=== PATIENT | female | born 1980 ===

== ENCOUNTER 2020-07-27 07:57 | Observation (INO) ==
[2020-07-27] MEDS ORDERED: SODIUM CHLORIDE 0.9% 1,000 ML IV STA (08:34)
[2020-07-27 08:55] LABS: Basophils % 0.1 % (0.0-0.8); Eosinophils % 0.3 % (0.00-10.9); Hematocrit 45.1 VOL% (35.7-47.0); Hemoglobin 14.9 GM/DL (12.0-16.0); Immature Granulocytes % 0.3 %; Immature Granulocytes Absolute 0.02 #; Lymphocytes # 1.1 10*3/uL (1.4-4.0); Lymphocytes % 14.1 % (21.3-54.2); Mean Platelet Volume 10.4 FL (9.6-12.0); Monocytes % 5.4 % (1.7-12.7); Neutrophils % 79.8 % (38.7-73.9); Platelet Count 213 T/CUMM (130-400); Red Blood Count 4.51 MC/CUMM (3.8-5.5); Red Cell Distribution Width 13.7 % (9.3-17.3); White Blood Count 7.5 T/CUMM (4-12)
[2020-07-27 09:22] LABS: Acetaminophen 4.6 UG/ML (10-30); Salicylate < 2.8 MG/DL (2.8-20)
[2020-07-27 09:55] LABS: Alanine Aminotransferase 46 U/L (13-56); Albumin 4.9 G/DL (3.4-5.0); Aspartate Amino Transferase 61 U/L (0-37); Bilirubin,Total 0.51 MG/DL (0.2-1.0); Blood Urea Nitrogen 13 MG/DL (7-18); Estimated Glom Filtration Rate 49 ML/MIN; Glucose 93 MG/DL (74-106); Total Protein 8.7 G/DL (6.4-8.3)
[2020-07-27 10:16] LABS: Alkaline Phosphatase 61 U/L (45-117); Osmolality,Calculated 276.5 MOS/KG (273-304)
[2020-07-27 10:33] LABS: Bacteria,Urine Occasional /HPF (Few); Bilirubin,Urine Negative (Negative); Blood, Urine Negative (Negative); Glucose,Urine (UA) Negative (Negative); Hyaline Casts,Urine 1 /LPF (0-3); Ketones,Urine 20 mg/dL (Negative); Mucus,Urine Occasional /LPF (Occasional); Nitrite,Urine Negative (Negative); Protein,Urine 100 MG/DL; RBC,Urine 2 /HPF (0-4); Squamous Epithelial Cell,Urine Moderate /HPF (0-10); Urine Appearance CLOUDY (Clear); Urine Color Yellow (Yellow); Urine Specific Gravity 1.028 (1.001-1.035); Urine Urobilinogen < 2.0 EU/DL (0.2-1.0); WBC,Urine 5 /HPF (0-6)
[2020-07-27 11:01] LABS: Barbiturates Screen,Urine Negative (Negative); Benzodiazepines Screen,Urine Negative (Negative); Cannabinoid Screen,Urine Negative (Negative); Opiate Screen,Urine Negative (Negative); Phencyclidine Screen,Urine Negative (Negative)
[2020-07-27] MEDS ORDERED: DEXTROSE 50% 25 GM/50 ML VIAL IV PRN (17:22)
[2020-07-27] MEDS ORDERED: ACETAMINOPHEN 325 MG TABLET PO PRN (17:22)
[2020-07-27] MEDS ORDERED: GLUCAGON 1 MG VIAL IM PRN (17:22)
[2020-07-27] MEDS ORDERED: DOCUSATE SODIUM 100 MG CAPSULE PO PRN (17:30)
[2020-07-27] MEDS ORDERED: NICOTINE 21 MG/24 HR PATCH TRANSDERM PRN (17:30)
[2020-07-27] MEDS ORDERED: ONDANSETRON 4 MG/2 ML VIAL IV PRN (17:30)
[2020-07-27] MEDS ORDERED: CALCIUM CARBONATE CHEW 500 MG TABLET PO PRN (17:30)
[2020-07-27] MEDS: SODIUM CHLORIDE 0.9% 1,000 ML IV SCH (18:26)
[2020-07-27] MEDS ORDERED: ENOXAPARIN 40 MG/0.4 ML SYRINGE SUBCUT SCH (21:00)
[2020-07-28] MEDS: SODIUM CHLORIDE 0.9% 1,000 ML IV SCH ×2 (01:53→09:26)
[2020-07-28 06:05] LABS: Basophils % 0.3 % (0.0-0.8); Eosinophils % 0.8 % (0.00-10.9); Hematocrit 34.2 VOL% (35.7-47.0); Hemoglobin 11.3 GM/DL (12.0-16.0); Immature Granulocytes % 0.3 %; Immature Granulocytes Absolute 0.01 #; Lymphocytes # 1.7 10*3/uL (1.4-4.0); Lymphocytes % 46.2 % (21.3-54.2); Mean Corpuscular Volume 101.2 FL (87-102); Mean Platelet Volume 11.2 FL (9.6-12.0); Monocytes % 7.6 % (1.7-12.7); Neutrophils % 44.8 % (38.7-73.9); Platelet Count 159 T/CUMM (130-400); Red Blood Count 3.38 MC/CUMM (3.8-5.5); Red Cell Distribution Width 13.7 % (9.3-17.3); White Blood Count 3.7 T/CUMM (4-12)
[2020-07-28 06:45] LABS: Albumin 2.8 G/DL (3.4-5.0); Bilirubin,Total 0.5 MG/DL (0.2-1.0); Calcium 7.4 MG/DL (8.5-10.1); Osmolality,Calculated 283.8 MOS/KG (273-304); Thyroid Stimulating Hormone 0.794 uIU/ml (0.358-3.74); Total Protein 5.5 G/DL (6.4-8.3)
[2020-07-28] MEDS ORDERED: PANTOPRAZOLE 40 MG TABLET PO SCH (09:00)
[2020-07-28] MEDS ORDERED: NAPROXEN 500 MG TABLET PO PRN (10:04)
[2020-07-28] MEDS ORDERED: METHOCARBAMOL 500 MG TABLET PO PRN (10:04)
[2020-07-28 11:35] LABS: Eosinophils % 0.6 % (0.00-10.9); Hematocrit 32.8 VOL% (35.7-47.0); Immature Granulocytes % 0.3 %; Immature Granulocytes Absolute 0.01 #; Lymphocytes # 1.3 10*3/uL (1.4-4.0); Lymphocytes % 41.5 % (21.3-54.2); Mean Corpuscular HGB Conc 33.5 GM/DL (32-36); Mean Corpuscular Volume 99.7 FL (87-102); Mean Platelet Volume 10.9 FL (9.6-12.0); Monocytes % 7.1 % (1.7-12.7); Neutrophils % 50.5 % (38.7-73.9); Platelet Count 148 T/CUMM (130-400); Red Blood Count 3.29 MC/CUMM (3.8-5.5); Red Cell Distribution Width 13.7 % (9.3-17.3); White Blood Count 3.1 T/CUMM (4-12)
[2020-07-28 11:57] LABS: Alanine Aminotransferase 31 U/L (13-56); Albumin 2.9 G/DL (3.4-5.0); Alkaline Phosphatase 43 U/L (45-117); Aspartate Amino Transferase 24 U/L (0-37); Bilirubin,Total < 0.39 MG/DL (0.2-1.0); Blood Urea Nitrogen 11 MG/DL (7-18); Calcium 7.5 MG/DL (8.5-10.1); Estimated Glom Filtration Rate 85 ML/MIN; Glucose 90 MG/DL (74-106); Total Protein 5.7 G/DL (6.4-8.3)
[2020-07-28 12:22] LABS: Bacteria,Urine Occasional /HPF (Few); Bilirubin,Urine Negative (Negative); Blood, Urine Negative (Negative); Glucose,Urine (UA) Negative (Negative); Ketones,Urine Negative (Negative); Mucus,Urine Occasional /LPF (Occasional); Nitrite,Urine Negative (Negative); Protein,Urine Negative; RBC,Urine <1 /HPF (0-4); Squamous Epithelial Cell,Urine Few /HPF (0-10); Urine Appearance CLEAR (Clear); Urine Color Straw (Yellow); Urine Specific Gravity 1.009 (1.001-1.035); Urine Urobilinogen < 2.0 EU/DL (0.2-1.0)
[2020-07-28 13:28] LABS: Barbiturates Screen,Urine Negative (Negative); Benzodiazepines Screen,Urine Negative (Negative); Cannabinoid Screen,Urine Negative (Negative); Opiate Screen,Urine Negative (Negative); Phencyclidine Screen,Urine Negative (Negative)
[2020-07-28 15:33] VITALS: BP 78/53
== END 2020-07-28 18:15 ==
LOC: EDUNIT# → EDBD → N.EDINP 07:57 → N.ED 07:57 → N.EDINP 17:55 → N.5E 18:10
PROVIDERS: ADMIT Internal Medicine; ATTEND Internal Medicine